=== PATIENT | male | born 1980 | race Caucasian/White ===

== ENCOUNTER 2021-02-11 20:36 | Emergency (ER) | payer MEDICARE, OTHER ==
[~2021-02-11 20:36] MED LIST: NEXIUM20 MG PO
[2021-02-11 23:48] LABS: HEMOGLOBIN 9.7 gm/dl (14.0-17.5); RED BLOOD COUNT 4.25 M/UL (4.20-5.50); WHITE BLOOD COUNT 8.6 K/UL (4.5-11.0)
[2021-02-12 00:07] LABS: BUN/CREATININE RATIO 9 (0-10)
[2021-02-12] MEDS ORDERED: AUGMENTIN 875-1 EACH PO (02:04)
[2021-02-12] MEDS ORDERED: BENTYL 10MG CAP10 MG PO (02:04)
[2021-02-12] MEDS ORDERED: FLAGYL500 MG PO (02:04)
== END 2021-02-12 02:30 | disposition home or self-care (01) ==
LOC: ER1 20:36
PROVIDERS: Physician Assistant
DX: K52.9 Noninfective gastroenteritis and colitis, unspecified (principal); Z88.5 Allergy status to narcotic agent; F17.210 Nicotine dependence, cigarettes, uncomplicated
CPT/HCPCS: 80053; 82150; 83605; 83690; 85025; 85610; 99284; Q9967